=== PATIENT | male | born 1955 | race Caucasian/White ===

== ENCOUNTER → 2019-09-02 | Outpatient (CLI) | payer MEDICARE ==
--- NOTE | 2019-09-03 14:31 | XR ---
Cervical spine HISTORY: Pain, trauma 3 views of the cervical spine Atherosclerotic calcification suspected at the distribution of the carotid arteries. Hypertrophic ant erior osteophytes are present with relative preservation of disc spaces. Cervical vertebral bodies sh ow preserved height and alignment. C7-T1 not included on the exam. IMPRESSION: Findings may be related to diffuse idiopathic skeletal hyperostosis. Limitations as descr ibed.
== END ==
LOC: RADXRMAIN 16:40
PROVIDERS: ATTEND Family Medicine
DX: M54.2 Cervicalgia (principal)
CPT/HCPCS: 72040

== ENCOUNTER → 2019-09-20 | Outpatient (CLI) | payer MEDICARE ==
--- NOTE | 2019-09-21 13:01 | ECHOF ---
Referral Reason:R94.31 Abnormal EKG MEASUREMENTS -------- HEIGHT: 182.9 cm WEIGHT: 99.8 kg BP: IVSd: 1.0 cm (0.6 - 1.1) LVIDd: 3.0 cm (3.9 - 5.3) LVPWd: 1.4 cm (0.6 - 1.1) IVSs: 1.5 cm LVIDs: 1.6 cm LVPWs: 1.6 cm LAESV Index (A-L): 21.46 ml/m Ao Diam: 3.9 cm (2.0 - 3.7) AV Cusp: 2.3 cm (1.5 - 2.6) LA Diam: 3.1 cm (2.7 - 3.8) MV EXCURSION: 12.148 mm (> 18.000) MV EF SLOPE: 86 mm/s (70 - 150) EPSS: 0.5 cm MV E Ang: 1.02 m/s MV DecT: 202 ms MV A Ang: 0.32 m/s MV E/A Ratio: 3.14 RAP: 5.00 mmHg RVSP: 10.99 mmHg FINDINGS -------- Sinus rhythm. This was a technically adequate study. The left ventricular size is normal. There is mild concentric left ventricular hypertrophy. Overa ll left ventricular systolic function is normal with, an EF between 55 - 60 %. The diastolic fillin g pattern is normal for the age of the patient 9.34. False Tendon Visualized in the LV The right ventricle is normal in size. The left atrial size is normal. Normal LA size by volume 22+/-6 ml/m2. The right atrial size is normal. Interatrial and interventricular septum intact. The aortic valve is trileaflet and appears structurally normal. The mitral valve is normal. There is trace mitral regurgitation. The tricuspid valve appears structurally normal. Trace tricuspid regurgitation present. Right myles tricular systolic pressure is normal at < 35 mmHg. There is no pulmonic regurgitation present. The aortic root size is normal. Normal inferior vena cava with normal inspiratory collapse consistent with estimated right atrial pre ssure of 5 mmHg. There is no pericardial effusion. CONCLUSIONS -------- 1. Sinus rhythm. 2. This was a technically adequate study. 3. The left ventricular size is normal. 4. There is mild concentric left ventricular hypertrophy. 5. Overall left ventricular systolic function is normal with, an EF between 55 - 60 %. 6. The diastolic filling pattern is normal for the age of the patient 9.34 7. False Tendon Visualized in the LV 8. The right ventricle is normal in size. 9. The left atrial size is normal. 10. Normal LA size by volume 22+/-6 ml/m2. 11. The right atrial size is normal. 12. Interatrial and interventricular septum intact. 13. The aortic valve is trileaflet and appears structurally normal. 14. The mitral valve is normal. 15. There is trace mitral regurgitation. 16. The tricuspid valve appears structurally normal. 17. Trace tricuspid regurgitation present. 18. Right ventricular systolic pressure is normal at < 35 mmHg. 19. There is no pulmonic regurgitation present. 20. The aortic root size is normal. 21. Normal inferior vena cava with normal inspiratory collapse consistent with estimated right atrial pressure of 5 mmHg. 22. There is no pericardial effusion. POLITICAL ADVISOR: Didi Villa RDCS
== END | disposition home or self-care (01) ==
LOC: RADECHMAIN 16:30
PROVIDERS: ATTEND Family Medicine
DX: I51.7 Cardiomegaly (principal)
CPT/HCPCS: 93306

== ENCOUNTER → 2019-11-28 | Outpatient (CLI) | payer MEDICARE ==
--- NOTE | 2019-11-28 17:17 | CT ---
EXAMINATION TYPE: CT brain wo con DATE OF EXAM: 11/28/2019 COMPARISON: None HISTORY: Fall injury x6 weeks ago. Confusion CT DLP: 1147 mGycm Automated exposure control for dose reduction was used. There is mild cerebral cortical atrophy. There is no mass effect nor midline shift. There is no sign of intracranial hemorrhage. Calvarium is intact. There is left parietal scalp soft tissue swelling. IMPRESSION: Cerebral atrophy. No acute intracranial abnormality.
== END ==
LOC: RADCTMAIN 16:32
PROVIDERS: ATTEND Family Medicine
DX: R41.82 Altered mental status, unspecified (principal); S06.0X9D Concussion with loss of consciousness of unspecified duration, subsequent encounter; W19.XXXD Unspecified fall, subsequent encounter
CPT/HCPCS: 70450

== ENCOUNTER → 2019-12-30 | Outpatient (CLI) | payer MEDICARE ==
--- NOTE | 2020-01-02 10:16 | MR ---
EXAMINATION TYPE: MR lumbar spine wo con DATE OF EXAM: 12/30/2019 COMPARISON: NONE HISTORY: Chronic LBP, radiates into buttocks TECHNIQUE: T1 and T2 axial and sagittal images of the lumbar spine are submitted. FINDINGS: There is no abnormal signal seen within the visualized spinal cord or paraspinal soft tissu es. There is a large vertebral body hemangioma of T12. Vertebral body hemangiomas of L2, L3, L4, L5, and S2 incidentally noted. Report called to referring clinician. At T12-L1 there is degenerative disc disease. No disc herniation, canal stenosis, or foraminal encroa chment. At L1-2 there is facet arthropathy. No disc herniation or canal stenosis. No foraminal encroachment. At L2-3 there is degenerative change with facet arthropathy. Large anterior hypertrophic spurs. No di sc herniation or canal stenosis. No foraminal encroachment. At L3-4 there is degenerative disc disease with diffuse disc bulging, advanced facet arthropathy, lig amentum flavum hypertrophy and moderate canal stenosis and bilateral foraminal encroachment. At L4-5 there is degenerative disc disease with diffuse disc bulging greater paracentrally to the lef t. Facet arthropathy noted. Mild effacement of thecal sac and mild bilateral foraminal encroachment. Increased signal in the L4 vertebral disc is noted. There is a slight anterolisthesis of 1 to 2 mm. At L5-S1 there is degenerative disc disease with advanced facet arthropathy. Mild central disc bulgin g but no canal stenosis. Mild bilateral foraminal encroachment. IMPRESSION: 1. Multilevel degenerative disc disease with multilevel advanced facet arthropathy result in multilev el foraminal encroachment as above. Disc bulging at L3-L4 with hypertrophic changes results in modera te canal stenosis and bilateral foraminal encroachment. 2. Increased signal in the L4 disc space likely is discogenic. If there is clinical concern for disci tis correlate with postcontrast imaging. 3. Numerous vertebral body hemangiomas. 4. broad-based disc bulging greater paracentrally to left L4-L5 with mild effacement of sac. Mild for aminal encroachment.
== END | disposition home or self-care (01) ==
LOC: RADMRIMAIN 19:40
PROVIDERS: ATTEND Physical Medicine & Rehabilitation
DX: M54.5 Low back pain (principal); M51.36 Other intervertebral disc degeneration, lumbar region; M51.26 Other intervertebral disc displacement, lumbar region; M48.061 Spinal stenosis, lumbar region without neurogenic claudication
CPT/HCPCS: 72148

== ENCOUNTER → 2020-05-16 | Outpatient (CLI) | payer MEDICARE ==
[~2020-05-16] MED LIST: REGADENOSON 0.4 MG/5 ML SYRINGE IV ONE
--- NOTE | 2020-05-16 08:45 | US ---
EXAMINATION TYPE: US duplex aorta DATE OF EXAM: 05/16/2020 COMPARISON: NONE CLINICAL HISTORY: Z13.6 Screening Cardiovascular, R55 Syncope.... HTN, patient stated was falling arcelia n while taking multiple antihypertensive medications; HT5'11., WT 235lbs US exam is technically limited by overlying bowel gas. EXAM MEASUREMENTS: Abdominal Aorta: Proximal: 2.4cm A/P Mid: 1.7cm A/P Distal: 2.1cm A/P Bifurcation: Right GIO = 1.4cm Transverse and Left GIO Transverse = 1.2cm Intimal wall thickening is noted distal ICA and into bilateral GIO. Color flow patency is documented within aorta and GIO. IMPRESSION: Atheromatous changes without evidence for aneurysm at this time.
--- NOTE | 2020-05-17 09:02 | NM ---
EXAMINATION TYPE: NM stress lexiscan cardiolite DATE OF EXAM: 05/16/2020 COMPARISON: NONE HISTORY: Z13.6 Screening Cardiovascular, R55 Syncope... TECHNIQUE: After the intravenous administration of 10.6 mCi Tc 99m Sestamibi - Cardiolite resting SP ECT images acquired 60 minutes post injection. The patient received 0.4mg Lexiscan, 25.5 mCi Tc 99m Sestamibi - Stress images obtained [address] injection FINDINGS: Review of stress and rest SPECT images demonstrates decreased perfusion inferior wall on the stress i mages. Stress-induced ischemia is not excluded. Gated analysis shows normal wall motion with an estim ated left ventricular ejection fraction of 58 %. IMPRESSION: Stress-induced ischemia inferior wall is difficult to exclude.
--- NOTE | 2020-05-17 09:11 | EST ---
EXERCISE STRESS DATE OF SERVICE: 05/16/2020 AGE: 64 SEX: Male HT: 70" WT: 254 lbs. PROTOCOL: Lexiscan STAGE: DURATION OF EXERCISE: HEART RATE REST: 66 BLOOD PRESSURE REST: 167/83 MAXIMUM HEART RATE ACHIEVED: 79 MAXIMUM BLOOD PRESSURE: 151/64 85% MPHR: 133 100% MPHR: 156 METS: INDICATIONS: Chest pain. CLINICAL INFORMATION: STRESS DATA: Heart rate 66, pressure is 167/83 mmHg. Baseline EKG showed sinus mechanism. Lexiscan 0.4 mg was given over 15 seconds per protocol. Max heart rate was 79 beats per minute and maximum pressure was 167/83 mmHg. Clinically the patient did not have any symptoms and the EKG did not show any significant ST or T-wave abnormalities concerning for ischemia. CONCLUSION: 1. Nondiagnostic electrocardiogram stress testing in response to Lexiscan. 2. Please follow up on the Cardiolite portion on separate report from Radiology Department. MMODL / IJN: [id number] /
== END | disposition home or self-care (01) ==
LOC: RADUSMAIN 07:45
PROVIDERS: ATTEND Family Medicine
DX: R55 Syncope and collapse (principal); I70.0 Atherosclerosis of aorta
CPT/HCPCS: 93017; 93979; 78452; A9500; J2785

== ENCOUNTER 2020-06-01 09:56 | Day surgery (SDC) | payer MEDICARE ==
[2020-05-30 14:36] VITALS: BMI 33.0
[~2020-06-01 09:56] MED LIST changes: +ALPRAZolam 0.25 MG TAB PO PRN; +ALPRAZolam 0.5 MG TAB PO PRN; +ASPIRIN 325 MG TAB PO STA; +ATORVASTATIN 80 MG TAB PO STA; +NITROGLYCERIN SL TABS 0.4 MG TAB SUBLINGUAL PRN; -REGADENOSON 0.4 MG/5 ML SYRINGE IV ONE; +SODIUM CHLORIDE 0.9% 1,000 ML in EMPTY BAG 1 BAG IV ONE
[2020-06-01 10:49] VITALS: TEMP 98.1
[2020-06-01] MEDS ORDERED: LIDOCAINE 1% INJ 10MG/ML (20 ML MDV) ONE (11:48)
[2020-06-01] MEDS ORDERED: MIDAZOLAM 2 MG/2 ML VIAL IV ONE (12:17)
[2020-06-01 12:20] LABS: Basophils % (A) 1 %; Eosinophils # (A) 0.2 k/uL (0-0.7); Eosinophils % (A) 3 %; HCT 42.7 % (39.0-53.0); HGB 14.3 gm/dL (13.0-17.5); Lymphocytes # (A) 1.3 k/uL (1.0-4.8); Lymphocytes % (A) 23 %; MCHC 33.5 g/dL (31.0-37.0); MCV 98.7 fL (80.0-100.0); Mean Platelet Volume 7.8; Monocytes # (A) 0.3 k/uL (0-1.0); Monocytes % (A) 5 %; Neutrophils # (A) 3.8 k/uL (1.3-7.7); Neutrophils % (A) 68 %; Platelet Count 259 k/uL (150-450); RBC 4.33 m/uL (4.30-5.90); RDW 12.4 % (11.5-15.5); WBC 5.7 k/uL (3.8-10.6)
[2020-06-01] MEDS ORDERED: LIDOCAINE 1% INJ 10MG/ML (20 ML MDV) SQ ONE (12:26)
[2020-06-01] MEDS ORDERED: fentaNYL (PF) 50 MCG/ML 2 ML AMP ONE (12:27)
[2020-06-01] MEDS ORDERED: fentaNYL (PF) 50 MCG/ML 2 ML AMP IV ONE (12:29)
[2020-06-01 12:32] LABS: Calcium 8.9 mg/dL (8.4-10.2); Potassium 4.1 mmol/L (3.5-5.1)
[2020-06-01] MEDS ORDERED: ENALAPRILAT 1.25 MG/ML 1 ML VIAL ONE (12:34)
[2020-06-01] MEDS ORDERED: ENALAPRILAT 1.25 MG/ML 1 ML VIAL IV ONE (12:36)
[2020-06-01] MEDS ORDERED: IOPAMIDOL-370 100ML BTL INJ ONE (12:41)
[2020-06-01] MEDS ORDERED: amLODIPine 5 MG TAB ONE (12:43)
[2020-06-01] MEDS ORDERED: amLODIPine 5 MG TAB PO ONE (12:47)
[2020-06-01] MEDS ORDERED: RX INFO: IV CONTRAST WAS GIVEN 1 EACH MISC MISCELLANE PRN (12:47)
[2020-06-01] MEDS ORDERED: SODIUM CHLORIDE 0.9% 1,000 ML IV SCH (13:00)
[2020-06-01 13:43] VITALS: RESP 16
[2020-06-01 15:48] VITALS: BP 145/68; PULSE 72
--- NOTE | 2020-06-01 18:20 | CC ---
CARDIAC CATHETERIZATION REPORT INDICATION: Shortness of breath with abnormal stress test showing ischemia involving inferior wall. PROCEDURE NOTE: After obtaining informed consent, left heart catheterization and coronary angiogram were performed via the right femoral artery using standard Fito catheters. The patient tolerated the procedure well without any obvious immediate complications. A femoral angiogram was performed and Angio-Seal was deployed for hemostasis. Patient received moderate conscious sedation. Total sedation time was 14 minutes. FINDINGS: HEMODYNAMICS: Left ventricular end-diastolic pressure is 24 mm. There is no significant gradient across the aortic valve. LEFT VENTRICULOGRAM: Left ventricular was not performed. ANGIOGRAPHIC DATA LEFT MAIN CORONARY ARTERY: Left main coronary artery is a normal-sized vessel and is free of stenosis. It divides into left anterior descending coronary artery and circumflex coronary artery and the ramus intermedius. There is a mild nonobstructive plaque involving both the LAD and circumflex coronary artery, but there are no focal significant lesions noted. RIGHT CORONARY ARTERY: Right coronary artery is a small nondominant vessel and is free of significant disease. CONCLUSION: 1. Mild nonobstructive coronary artery disease. 2. Elevated left ventricular end-diastolic pressure. 3. False-positive stress test. PLAN: Patient's management is going to be in the form of risk factor modification and optimal medical therapy. I will obtain a 2D echo on him to rule out significant valvular heart disease, given the unexplained shortness of breath. MMODL / IJN: [id number] /
--- NOTE | 2020-06-01 18:20 | LTR ---
May 02, 2020 To: Dr. Brenton Castorena Re: Nnamdi Castano (55) Dear Dr. Castorena, I performed cardiac catheterization on Nnamdi Castano. A detailed catheterization note is enclosed for your records. In brief, the cardiac catheterization did not reveal significant obstructive CAD. I believe the patient's shortness of breath is probably related to morbid obesity and uncontrolled hypertension, and the stress test is a false- positive stress test. Thank you for giving me the privilege of participating in the care of this pleasant gentleman. Sincerely, Eusebio Santo M.D. VELIA / HUDSON: [id number] /
== END 2020-06-01 17:35 | disposition home or self-care (01) ==
LOC: CATHCVL 09:56
PROVIDERS: ATTEND Internal Medicine Cardiovascular Disease
DX: I25.10 Atherosclerotic heart disease of native coronary artery without angina pectoris (principal); R93.1 Abnormal findings on diagnostic imaging of heart and coronary circulation; R06.02 Shortness of breath; I10 Essential (primary) hypertension; E11.9 Type 2 diabetes mellitus without complications; F41.9 Anxiety disorder, unspecified; M19.90 Unspecified osteoarthritis, unspecified site; J44.9 Chronic obstructive pulmonary disease, unspecified; E78.2 Mixed hyperlipidemia; E66.01 Morbid (severe) obesity due to excess calories; Z68.34 Body mass index [BMI] 34.0-34.9, adult; Z79.899 Other long term (current) drug therapy; Z79.51 Long term (current) use of inhaled steroids; Z79.82 Long term (current) use of aspirin; Z88.1 Allergy status to other antibiotic agents; Z87.891 Personal history of nicotine dependence
CPT/HCPCS: 93458; 80048; 85025; C1769 ×2; C1760; C1894; J2250; J2001; J3010; Q9967

== ENCOUNTER → 2021-03-12 | Outpatient (CLI) | payer MEDICARE ==
--- NOTE | 2021-03-12 14:09 | FL ---
Modified barium swallow. HISTORY: Dysphagia. Modified barium swallow was performed with the department of speech pathology. The patient was prese nted with various consistencies of barium. There is no evidence for aspiration or penetration. Full report is to follow from the department of speech pathology. Impression: Normal study.
== END | disposition home or self-care (01) ==
LOC: RADFLMAIN 11:45
PROVIDERS: ATTEND Family Medicine
DX: R13.10 Dysphagia, unspecified (principal)
CPT/HCPCS: 74230

== ENCOUNTER → 2021-03-14 | Outpatient (CLI) | payer MEDICARE | END | disposition home or self-care (01) | LOC: LABWHC1 15:39 | PROVIDERS: ATTEND Family Medicine | DX: Z20.822 Contact with and (suspected) exposure to COVID-19 (principal); R06.00 Dyspnea, unspecified; R06.02 Shortness of breath | CPT/HCPCS: U0003; C9803 ==

== ENCOUNTER → 2021-03-22 | Outpatient (CLI) | payer MEDICARE ==
--- NOTE | 2021-03-22 18:12 | XR ---
EXAMINATION TYPE: XR chest 2V DATE OF EXAM: 03/22/2021 CLINICAL HISTORY: Z91.81. Shortness of breath. TECHNIQUE: Frontal and lateral view of the chest. COMPARISON: None FINDINGS: The cardiomediastinal silhouette is within normal limits for size. Pulmonary vasculature i s normal. There is no focal air space opacity. No pleural effusion. No pneumothorax seen. There are diffuse bridging syndesmophytes of the thoracic spine. IMPRESSION: 1. No acute cardiopulmonary process. 2. Diffuse idiopathic skeletal hyperostosis (DISH).
== END | disposition home or self-care (01) ==
LOC: RADXRMAIN 15:06
PROVIDERS: ATTEND Family Medicine
DX: M48.14 Ankylosing hyperostosis [Forestier], thoracic region (principal)
CPT/HCPCS: 71046

== ENCOUNTER → 2021-07-03 | Outpatient (CLI) | payer MEDICARE ==
--- NOTE | 2021-07-04 09:11 | XR ---
EXAMINATION TYPE: XR knee complete RT DATE OF EXAM: 07/03/2021 COMPARISON: NONE HISTORY: 66-year-old male M25.561, worsening right knee pain TECHNIQUE: 3 views FINDINGS: Mild marginal spurring at the patellofemoral and medial compartments. No knee joint effusion. Extenso r mechanism is intact. No acute fracture, subluxation, or dislocation seen. IMPRESSION: Mild degenerative spurring medial and patellofemoral compartments. No acute osseous abnormality seen.
== END | disposition home or self-care (01) ==
LOC: RADXRMAIN 15:38
PROVIDERS: ATTEND Family Medicine
DX: M17.11 Unilateral primary osteoarthritis, right knee (principal); M76.891 Other specified enthesopathies of right lower limb, excluding foot

== ENCOUNTER → 2022-06-20 | Outpatient (CLI) | payer MEDICARE ==
--- NOTE | 2022-06-20 23:17 | US ---
EXAMINATION TYPE: US axilla RT DATE OF EXAM: 06/20/2022 COMPARISON: NONE CLINICAL HISTORY: R59.0 Localized enlarged lymph nodes. Lump right axilla since booster shot. Scanned area of concern no abnormalities visualized. IMPRESSION: No evidence of suspicious mass or organizing fluid collection.
== END | disposition home or self-care (01) ==
LOC: RADUSWWP 15:40
PROVIDERS: ATTEND Family Medicine
DX: R59.0 Localized enlarged lymph nodes (principal)

== ENCOUNTER 2022-07-31 16:27 | Emergency (ER) | payer MEDICARE ==
--- NOTE | 2022-07-31 18:32 | XR ---
EXAMINATION TYPE: XR chest 2V DATE OF EXAM: 07/31/2022 COMPARISON: 03/22/2021 HISTORY: Cough TECHNIQUE: Frontal and lateral views of the chest are obtained. FINDINGS: There is mild bibasilar hazy opacities. No pleural effusion, or pneumothorax seen. The ca rdiac silhouette size is within normal limits. The osseous structures are intact. IMPRESSION: Mild bibasilar opacities compatible with atelectasis.
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
[2022-07-31 18:56] LABS: Basophils % (A) 0 %; Eosinophils # (A) 0.1 k/uL (0-0.7); Eosinophils % (A) 2 %; HCT 42.6 % (39.0-53.0); HGB 14.4 gm/dL (13.0-17.5); Lymphocytes # (A) 1.2 k/uL (1.0-4.8); Lymphocytes % (A) 19 %; MCH 34.7 pg (25.0-35.0); MCHC 33.7 g/dL (31.0-37.0); MCV 103.1 fL (80.0-100.0); Macrocytosis Slight; Mean Platelet Volume 7.9; Monocytes # (A) 0.4 k/uL (0-1.0); Monocytes % (A) 6 %; Neutrophils # (A) 4.6 k/uL (1.3-7.7); Neutrophils % (A) 73 %; Platelet Count 245 k/uL (150-450); RBC 4.14 m/uL (4.30-5.90); RDW 12.8 % (11.5-15.5); WBC 6.4 k/uL (3.8-10.6)
[2022-07-31] MEDS ORDERED: IPRATROPIUM-ALBUTEROL 3 ML NEB INHALATION STA (18:57)
[2022-07-31 19:07] LABS: ALT 17 U/L (4-49); AST 24 U/L (17-59); African American GFR (CKD) >90 (>60 ml/min/1.73 sqM); Albumin 4.1 g/dL (3.5-5.0); Alkaline Phosphatase 51 U/L (38-126); Anion Gap 11 mmol/L; Blood Urea Nitrogen 27 mg/dL (9-20); Carbon Dioxide 25 mmol/L (22-30); Chloride 100 mmol/L (98-107); Glucose 96 mg/dL (74-99); Magnesium 1.8 mg/dL (1.6-2.3); Non-African American GFR(CKD) 82 (>60 ml/min/1.73 sqM); Potassium 4.3 mmol/L (3.5-5.1); Sodium 136 mmol/L (137-145); Total Bilirubin 0.6 mg/dL (0.2-1.3); Total Protein 6.3 g/dL (6.3-8.2)
[2022-07-31 19:08] LABS: INR 0.9 (<1.2); Partial Thromboplastin Time 24.6 sec (22.0-30.0); Prothrombin Time 10.1 sec (9.0-12.0)
--- NOTE | 2022-07-31 21:54 | CT ---
EXAMINATION TYPE: CT chest angio for PE DATE OF EXAM: 07/31/2022 COMPARISON: Same-day radiographs HISTORY: hemoptysis CT DLP: 659 mGycm Automated exposure control for dose reduction was used. CONTRAST: CT Chest for pulmonary embolism performed with with IV Contrast, patient injected with 100ml mL of Is ovue 370. FINDINGS: LUNGS: There is moderate patchy opacity in the right lower lobe. There is no pleural effusion or pneu mothorax seen. The tracheobronchial tree is patent. MEDIASTINUM: There is satisfactory enhancement of the pulmonary artery and its branches, there is no CT evidence for pulmonary embolism. There are no greater than 1 cm hilar or mediastinal lymph nodes. No pericardial effusion is seen. OTHER: No additional significant abnormality is seen. Multilevel bridging anterior syndesmophytes co mpatible with ankylosis spondylitis. IMPRESSION: Right lower lobe patchy opacities may represent pneumonia and/or aspiration changes. Recommend follow -up imaging to document resolution and exclude any underlying process. No acute PE.
[2022-07-31] MEDS ORDERED: cefTRIAXone IN SWFI 1,000 MG/10 ML SYRINGE IVP STA ×2 (21:56→21:57)
[2022-07-31] MEDS ORDERED: AZITHROMYCIN 500 MG TAB PO STA (21:56)
[2022-07-31 22:38] VITALS: BP 173/88; PULSE 82; RESP 22; TEMP 99.2
== END 2022-07-31 22:46 | disposition home or self-care (01) ==
LOC: EC 16:27
DX: R04.2 Hemoptysis (principal); J18.9 Pneumonia, unspecified organism; K62.5 Hemorrhage of anus and rectum; I25.10 Atherosclerotic heart disease of native coronary artery without angina pectoris; K21.9 Gastro-esophageal reflux disease without esophagitis; E78.5 Hyperlipidemia, unspecified; I10 Essential (primary) hypertension; F41.9 Anxiety disorder, unspecified; F32.A Depression, unspecified; Z87.891 Personal history of nicotine dependence; Z88.1 Allergy status to other antibiotic agents; Z88.8 Allergy status to other drugs, medicaments and biological substances; Z79.82 Long term (current) use of aspirin; Z79.51 Long term (current) use of inhaled steroids; Z79.899 Other long term (current) drug therapy
CPT/HCPCS: 36415; 94640; 93005; 86900; 86901; 85379; 80053; 83735; 84484; 85025; 85610; 85730; 86850; 87040; 71046; 71275; 99284; 96374; J0696; Q9967

== ENCOUNTER → 2022-09-18 | Outpatient (CLI) | payer MEDICARE ==
--- NOTE | 2022-09-19 07:31 | XR ---
EXAMINATION TYPE: XR chest 2V DATE OF EXAM: 09/18/2022 4:11 PM COMPARISON: Chest radiographs from 07/31/2022 TECHNIQUE: XR chest 2V Frontal and lateral views of the chest. CLINICAL INDICATION:Male, 67 years old with history of J18.1 Pneumonia; FINDINGS: Lungs/Pleura: There is no evidence of pleural effusion, focal consolidation, or pneumothorax. Pulmonary vascularity: Unremarkable. Heart/mediastinum: Cardiomediastinal silhouette is unremarkable. Musculoskeletal: No acute osseous pathology. IMPRESSION: No acute cardiopulmonary disease/process.
== END | disposition home or self-care (01) ==
LOC: RADXRMAIN 15:54
PROVIDERS: ATTEND Family Medicine
DX: J18.1 Lobar pneumonia, unspecified organism (principal)
CPT/HCPCS: 71046

== ENCOUNTER 2022-10-17 10:57 | Day surgery (SDC) | payer MEDICARE ==
[~2022-10-17 10:57] MED LIST changes: -ALPRAZolam 0.25 MG TAB PO PRN; -ALPRAZolam 0.5 MG TAB PO PRN; -ASPIRIN 325 MG TAB PO STA; -ATORVASTATIN 80 MG TAB PO STA; +LACTATED RINGERS 1,000 ML IV SCH; -NITROGLYCERIN SL TABS 0.4 MG TAB SUBLINGUAL PRN; -SODIUM CHLORIDE 0.9% 1,000 ML in EMPTY BAG 1 BAG IV ONE
[2022-10-17 12:45] VITALS: TEMP 98.5
[2022-10-17] MEDS ORDERED: PROPOFOL 10 MG/ML 20 ML VIAL IV ONE (13:20)
--- NOTE | 2022-10-17 13:38 | P.PCN ---
Date of Procedure: 10/17/22 Procedure(s) Performed: BRIEF HISTORY: Patient is a 67-year-old pleasant male scheduled for an elective colonoscopy as a part of value should of intermittent rectal bleeding. PROCEDURE PERFORMED: Colonoscopy. PREOPERATIVE DIAGNOSIS: Intermittent rectal bleeding. IV sedation per Anesthesia. PROCEDURE: After informed consent was obtained, the patient, was brought into the endoscopy unit. IV sedation was administered by Anesthesia under continuous monitoring. Digital rectal examination was normal. Initially the Olympus CF-160 flexible video colonoscope was then inserted in the rectum, gradually advanced into the cecum without any difficulty. Careful examination was performed as the scope was gradually being withdrawn. Ileocecal valve and the appendiceal orifice were visualized and appeared normal. Prep was excellent. Mucosa of the cecum, ascending colon, transverse colon, descending colon, sigmoid colon, and rectum appeared normal. Scattered sigmoid diverticulosis Retroflexion was performed in the rectum and small internal hemorrhoids were seen. The patient tolerated the procedure well. IMPRESSION: Normal-appearing colon from rectum to cecum with no evidence of colorectal neoplasia. Scattered sigmoid diverticulosis Small internal hemorrhoids RECOMMENDATIONS: Findings of this examination were discussed with the patient as well as his family. He was advised to be on a high-fiber diet and take fiber supplements a regular basis. Recommend repeat screening colonoscopy in 10 years..
[2022-10-17 13:57] VITALS: BP 147/75; PULSE 78; RESP 16
== END 2022-10-17 14:24 | disposition home or self-care (01) ==
LOC: ORWHC2ENDO 10:57
PROVIDERS: ATTEND Internal Medicine Gastroenterology
DX: K62.5 Hemorrhage of anus and rectum (principal); K57.30 Diverticulosis of large intestine without perforation or abscess without bleeding; K64.8 Other hemorrhoids
CPT/HCPCS: 45378; J2704